=== PATIENT | female | born 1960 | race African-American/Black ===

== ENCOUNTER 2020-11-30 08:26 | Day surgery (SDC) | payer OTHER ==
[2020-11-25 11:53] VITALS: BMI 25.7
[2020-11-30] MEDS ORDERED: PROPOFOL 20 ML ONE ×2 (09:05)
[2020-11-30 10:20] VITALS: TEMP 97.4
[2020-11-30 10:37] VITALS: BP 120/67; PULSE 80
== END 2020-11-30 10:45 | disposition home or self-care (01) ==
LOC: FASU-ENDO 08:26
PROVIDERS: ATTEND Internal Medicine Gastroenterology
PROC: 0DBN8ZX Excision of Sigmoid Colon, Via Natural or Artificial Opening Endoscopic, Diagnostic (ICD-10-PCS; 2020-11-30)
PROC: 0DBK8ZX Excision of Ascending Colon, Via Natural or Artificial Opening Endoscopic, Diagnostic (ICD-10-PCS; principal; 2020-11-30 09:32)
DX: Z12.11 Encounter for screening for malignant neoplasm of colon (principal); K63.5 Polyp of colon